=== PATIENT | male | born 1940 | race Caucasian/White ===

== ENCOUNTER 2024-03-06 15:20 | Inpatient (IN) | payer MEDICARE, OTHER ==
[~2024-03-06 15:20] MED LIST: Iopamidol-370 76% 500 ML MDV (1 ML CHARGE) ONE
[2024-03-06] MEDS ORDERED: Clindamycin/D5W 900 mg/50 ml Premix Bag ONE (16:05)
[2024-03-06] MEDS ORDERED: Chlorhexidine Gluconate 15 ML UDCUP SSP PRN (16:13)
[2024-03-06] MEDS ORDERED: Clindamycin/D5W 900 MG in Premix 1 BAG IVPB SCH (16:15)
[2024-03-06 16:38] LABS: #Basophils Less than 0.03 10x3/uL (0.0-0.2); %Basophils 0.2 % (0.0-1.0); %Eosinophils 0.5 % (0.0-10.0); %Lymphocytes 5.2 % (21.0-51.0); %Monocytes 8.4 % (0.0-10.0); %Neutrophils 85.4 % (42.0-75.0); Hematocrit 48.1 % (42.0-52.0); Hemoglobin 15.4 g/dL (14.0-18.0); Mean Corpuscular Hemoglobin 29.3 pg (27.0-31.0); Mean Corpuscular Volume 91.6 fL (78.0-98.0); Mean Platelet Volume 9.1 fL (7.4-10.4); Platelet Count 176 10x3/uL (130-400); RBC Distribution Width 13.2 % (11.5-14.5); Red Blood Cell (RBC) Count 5.25 mill/uL (4.70-6.10)
[2024-03-06 16:55] LABS: Anion Gap 20 mmol/L (10-20); BUN (Urea Nitrogen) 23 mg/dL (8.4-25.7); Calc. Creatinine Clearance 0 mL/min (70-130); Carbon Dioxide 21 mmol/L (23-31); Chloride 102 mmol/L (98-107); Estimated GFR 52; Glucose 92 mg/dL (83-110); Potassium 3.7 mmol/L (3.5-5.1); Sodium 139 mmol/L (136-145)
[2024-03-06] MEDS ORDERED: Ondansetron PF 4 MG/2 ML Vial IVP PRN (18:54)
[2024-03-06] MEDS ORDERED: Acetaminophen 650 MG Suppository PR PRN (18:54)
[2024-03-06] MEDS ORDERED: Ondansetron ODT 4 MG TAB PO PRN (18:54)
[2024-03-06] MEDS: Acetaminophen 325 MG TAB PO PRN (21:56)
[2024-03-06] MEDS: Chlorhexidine Gluconate 15 ML UDCUP SSP SCH (21:57)
[2024-03-06] MEDS: Clindamycin/D5W 900 MG in Premix 1 BAG IVPB SCH (22:03)
[2024-03-07 00:38] VITALS: BMI 22.1
[2024-03-07] MEDS: Amlodipine 10 MG TAB PO SCH (08:14)
[2024-03-07] MEDS: Sodium Chloride 0.9% 1,000 ML IV SCH (08:14)
[2024-03-07] MEDS ORDERED: EPINEPHrine 1 MG/ML VIAL ONE (10:49)
[2024-03-07] MEDS ORDERED: Hydrocortisone 1% Cream 30 GM TUBE ONE (10:50)
[2024-03-07] MEDS ORDERED: Chlorhexidine Gluconate 15 ML UDCUP SSP ONE (10:50)
[2024-03-07] MEDS ORDERED: Lidocaine 1% (PF) 30 ML VIAL ONE (10:50)
[2024-03-07] MEDS ORDERED: PROPOFOL 20 ML ONE (11:43)
[2024-03-07] MEDS ORDERED: Lidocaine 1% PF 5 ML VIAL ONE (11:43)
[2024-03-07] MEDS ORDERED: Rocuronium Bromide 10 MG/ML (10ML VIAL) ONE (11:46)
[2024-03-07] MEDS ORDERED: fentaNYL 50 mcg/mL 1 mL Vial ONE ×4 (12:31→14:25)
[2024-03-07] MEDS ORDERED: Ondansetron PF 4 MG/2 ML Vial ONE ×2 (12:54→13:17)
[2024-03-07] MEDS ORDERED: Esmolol 100 MG/10 ML VIAL ONE (13:04)
[2024-03-07] MEDS ORDERED: Dexamethasone 20 MG/5 ML VIAL ONE (13:17)
[2024-03-07] MEDS ORDERED: ePHEDrine Sulfate 50 MG/10 ML VIAL ONE (13:31)
[2024-03-07] MEDS ORDERED: PHENYLEPHRINE-NS 100 MCG/ML 10 ML SYRINGE ONE (13:33)
[2024-03-07] MEDS ORDERED: Clindamycin/D5W 900 mg/50 ml Premix Bag ONE (13:39)
[2024-03-07] MEDS ORDERED: SUGAMMADEX SODIUM 200 MG/2 ML VIAL ONE (13:44)
[2024-03-08 05:49] LABS: #Basophils Less than 0.03 10x3/uL (0.0-0.2); #Eosinophils Less than 0.03 10x3/uL (0.0-0.7); %Lymphocytes 3.5 % (21.0-51.0); %Monocytes 3.5 % (0.0-10.0); %Neutrophils 92.8 % (42.0-75.0); Hematocrit 35.2 % (42.0-52.0); Hemoglobin 11.6 g/dL (14.0-18.0); Mean Corpuscular Hemoglobin 29.2 pg (27.0-31.0); Mean Corpuscular Volume 88.7 fL (78.0-98.0); Mean Platelet Volume 9.6 fL (7.4-10.4); Platelet Count 173 10x3/uL (130-400); RBC Distribution Width 12.8 % (11.5-14.5); Red Blood Cell (RBC) Count 3.97 mill/uL (4.70-6.10)
[2024-03-08 06:07] LABS: Anion Gap 15 mmol/L (10-20); BUN (Urea Nitrogen) 25 mg/dL (8.4-25.7); Calc. Creatinine Clearance 56 mL/min (70-130); Calcium 8.4 mg/dL (7.8-10.44); Carbon Dioxide 22 mmol/L (23-31); Chloride 103 mmol/L (98-107); Estimated GFR 77; Glucose 169 mg/dL (83-110); Potassium 3.5 mmol/L (3.5-5.1); Sodium 136 mmol/L (136-145)
[2024-03-08 08:15] VITALS: TEMP 98
[2024-03-08] MEDS: Saccharomyces boulardii 250 MG CAP PO SCH (08:23)
[2024-03-08] MEDS: Potassium Bicarbonate/Cit Ac 20 MEQ TAB PO SCH (10:34)
[2024-03-08 12:58] VITALS: BP 103/63
[2024-03-09] MEDS ORDERED: FLU (Fluad Triv) TS24-25 (65UP)/MF59C/PF 45 MCG/0.5 ML Syringe IM ONE (09:00)
== END 2024-03-08 13:40 | disposition home or self-care (01) | DRG 159 ==
LOC: SDC 15:20 → SURG A 18:56
PROVIDERS: ADMIT Family Medicine; ATTEND Internal Medicine
PROC: 0J910ZZ Drainage of Face Subcutaneous Tissue and Fascia, Open Approach (ICD-10-PCS; principal; 2024-03-07)
DX: K12.2 Cellulitis and abscess of mouth (principal); K04.7 Periapical abscess without sinus; Z88.8 Allergy status to other drugs, medicaments and biological substances; E78.5 Hyperlipidemia, unspecified; I10 Essential (primary) hypertension; Z90.49 Acquired absence of other specified parts of digestive tract; Z79.899 Other long term (current) drug therapy; Z79.82 Long term (current) use of aspirin
CPT/HCPCS: 36415; 70491; 71045; 80048; 85025; 93005; 93010; J0171; J1100; J2405; J2704; J3010; J3490; J7030; Q9967